=== PATIENT | female | born 1995 | race Caucasian/White ===

== ENCOUNTER 2017-06-22 16:19 | Emergency (ER) | payer BC ==
[~2017-06-22] VITALS: Ht 165.1 cm; Wt 100.2 kg
[~2017-06-22 16:19] MED LIST: MELO7.5T5 PO
[2017-06-22 16:42] VITALS: TEMP 37; Ht 165.1 cm; Wt 100.2 kg
[2017-06-22] MEDS ORDERED: KETOROLAC TROMETHAMINE 30 MG/ML VIAL IV STA (17:26)
[2017-06-22] MEDS ORDERED: AMPICILLIN/SULBACTAM SOD INJ 3,000 MG in SODIUM CHLORIDE 0.9% 100ML 100 ML IV STA (17:26)
[2017-06-22] MEDS ORDERED: DEXAMETHASONE INJ 8 MG in SYRINGE 0 ML IV ONE (17:30)
[2017-06-22] MEDS ORDERED: SODIUM CHLORIDE 0.9% 1000ML 1,000 ML IV ONE (17:30)
[2017-06-22] MEDS ORDERED: DEXAMETHASONE **PF** INJ 10 MG/ML VIAL ONE (17:33)
[2017-06-22 17:56] LABS: BASO % 0.1 %; BASO ABS # 0.01 K/uL (0-0.2); EOS % 0.4 %; EOS ABS # 0.04 K/uL (0-0.5); HEMATOCRIT 40.2 % (37-47); HEMOGLOBIN 13.9 g/dL (12.0-16.0); IG# 0.03 K/uL (0.00-0.02); LYMPH % 12.8 %; LYMPH ABS # 1.34 K/uL (1.2-3.4); MEAN CELL VOLUME 89.5 fL (80-100); MEAN CORPUSCULAR HGB CONC 34.6 g/dl (32-36); MEAN PLATELET VOLUME 9.9 fL (7.4-10.4); MONO % 9.2 %; MONO ABS # 0.96 K/uL (0.11-0.59); NEUT % 77.2 %; NEUT ABS # 8.09 K/uL (1.4-6.5); PLATELET COUNT 250 K/uL (130-400); RED CELL DISTRIBUTION WIDTH CV 12.9 % (11.5-14.5); RED CELL DISTRIBUTION WIDTH SD 41.8 fL (36.4-46.3); WHITE BLOOD COUNT 10.47 K/uL (4.8-10.8)
[2017-06-22 18:23] LABS: CALCIUM 9.2 mg/dl (8.5-10.1); CREATININE 0.85 mg/dl (0.60-1.20)
[2017-06-22] MEDS ORDERED: AMOX875T3 PO (18:37)
[2017-06-22] MEDS ORDERED: PRED20TA2 PO (18:37)
[2017-06-22 19:18] VITALS: BP 131/69; PULSE 74; O2SAT 96
--- NOTE | 2017-06-24 11:01 | EMERGENCY ROOM VISIT NOTE ---
ED Visit Note First contact with patient: 16:47 Chief Complaint: Throat pain and difficulty swallowing. History of Present Illness: Ms. Elder is a 22-year-old white female who ambulates into the ED complaining of throat pain and difficulty swallowing. Patient reports her discomfort started about 3 days ago. She reports initially it was mild and has gradually increased in intensity. She describes her pain as a sharp and pressure discomfort in the posterior throat area. Her pain is nonradiating. He currently rates her discomfort 3/10. Her pain has been constant but has waxed and waned in intensity; she reports it's much worse in the morning when she is waking up. Her pain worsens with swallowing and sometimes with talking. She has not identified any alleviating factors related to the pain. She does report she has been taken Tylenol without relief of her discomfort. She denies fevers but does report she has chills, sweats, skin eruptions, skin color changes, headaches, dizziness, lightheadedness, ear pain, ear drainage, voice changes, inability to swallow, drooling, neck pain/stiffness, cough, wheezing, shortness of breath, abdominal pain, decreased appetite. Review of Systems: As noted above in history of present illness. 8 body systems were reviewed and found to be negative as noted above. Past Medical History: Patient denies. Current Medications: Patient denies. Allergies to Medications: Penicillin. Social History: Patient is currently employed; she feels safe in her home environment; she denies tobacco and alcohol use. Physical Examination: Vital Signs: Date Time Temp Pulse Resp B/P (MAP) Pulse Ox O2 Delivery O2 Flow Rate FiO2 06/22/17 19:18 74 18 131/69 96 06/22/17 16:42 98 Room Air 06/22/17 16:42 37.0 89 18 123/83 98 Room Air GENERAL: 22-year-old female in mild to moderate distress due to pain, nontoxic- appearing, afebrile and hemodynamically stable. NEUROLOGICAL: Awake, alert and oriented to person, place and time. Answering questions appropriately and following commands. Normal gait. Good hand eye coordination. No focal motor or sensory deficits. SKIN: Warm, dry and pink. No soft tissue eruptions noted. HEENT: Atraumatic and normocephalic. No tenderness or erythema over the frontal or maxillary sinuses. External ears are nontender. Auditory canal is pink and patent. Tympanic membranes are not erythematous or edematous. PERRLA. Sclera white and conjunctiva pink without drainage. No drainage from naris. Oral cavity moist and pink. Uvula is midline and no abscesses are seen. Airway patent. Speech is normal and clear. Posterior pharyngeal area is moderately erythematous and moderately edematous. There is tonsillar hypertrophy which is slightly more pronounced on the right and the left. No uvula deviation. There is purulent drainage on the tonsils. Speech normal and clear. Mild right-sided cervical lymphadenopathy in the anterior chain. Trachea midline. No jugular venous distention. No laryngeal tenderness. No auditory or auscultatory stridor. BACK: No tenderness over the bony spine. Full range of motion of the cervical spine. THORAX: Lungs sounds are clear to auscultation and equal bilaterally with symmetrical chest wall. No wheezing, rales or rhonchi. ABDOMEN: Flat, soft and nontender. Positive bowel sounds in all quadrants. No guarding, rigidity or organomegaly. EXTREMITIES: Moves all extremities well on command and with purpose. ED Course: Patient is assessed as noted above. Patient's medication list was reviewed. Rapid Strep Screen: Negative. Cultures pending. Laboratory Testing: Test 06/22/17 17:45 06/22/17 18:23 Range/Units White Blood Count 10.47 4.8-10.8 K/uL Red Blood Count 4.49 4.2-5.4 M/uL Hemoglobin 13.9 12.0-16.0 g/dL Hematocrit 40.2 37-47 % Mean Corpuscular Volume 89.5 80-100 fL Mean Corpuscular Hemoglobin 31.0 25-34 pg Mean Corpuscular Hemoglobin Concent 34.6 32-36 g/dl Platelet Count 250 130-400 K/uL Mean Platelet Volume 9.9 7.4-10.4 fL Neutrophils (%) (Auto) 77.2 % Lymphocytes (%) (Auto) 12.8 % Monocytes (%) (Auto) 9.2 % Eosinophils (%) (Auto) 0.4 % Basophils (%) (Auto) 0.1 % Neutrophils # (Auto) 8.09 1.4-6.5 K/uL Lymphocytes # (Auto) 1.34 1.2-3.4 K/uL Monocytes # (Auto) 0.96 0.11-0.59 K/uL Eosinophils # (Auto) 0.04 0-0.5 K/uL Basophils # (Auto) 0.01 0-0.2 K/uL RDW Standard Deviation 41.8 36.4-46.3 fL RDW Coefficient of Variation 12.9 11.5-14.5 % Immature Granulocyte % (Auto) 0.3 % Immature Granulocyte # (Auto) 0.03 0.00-0.02 K/uL Sodium Level 136 136-145 mmol/L Potassium Level 3.6 3.5-5.1 mmol/L Chloride Level 104 98-107 mmol/L Carbon Dioxide Level 27 21-32 mmol/L Anion Gap 5.0 3-11 mmol/L Blood Urea Nitrogen 11 7-18 mg/dl Creatinine 0.85 0.60-1.20 mg/dl Est Creatinine Clear Calc Drug Dose 120.7 ml/min Estimated GFR () 111.9 Estimated GFR (Non- 96.6 BUN/Creatinine Ratio 12.6 10-20 Random Glucose 88 70-99 mg/dl Calcium Level 9.2 8.5-10.1 mg/dl Monoscreen NEG NEG An IV lock was initiated and patient hydrated with normal saline and she received 8 mg of Decadron IV, 30 mg of Toradol IV and 3 g of Unasyn IV for antibiotic coverage. Patient was reassessed multiple times during her stay in the emergency department. Patient was educated about today's findings and instructed on her treatment plan ; she verbalized understanding and agreement with this plan. Clinical Impression: Acute tonsillitis. Decision-Making: Pharyngitis for multiple causes including mononucleosis, strep , viral, tonsillar abscess, deep neck tissue abscess, epiglottitis and other causes. Disposition: Patient discharged home in stable condition; prior to departure she was reassessed and subjectively reported she was feeling better and rated her discomfort 1/10. Plan: Patient was prescribed amoxicillin 875 mg 3 times a day for 10 days. Patient was prescribed 60 mg of prednisone once a day for the next 5 days. Patient was encouraged to alternate ibuprofen and acetaminophen as needed for pain or fevers. Patient was encouraged to use a liquid/mechanical soft diet until resolution of throat discomfort. Patient was encouraged to follow-up with [facility] for recheck in 2-3 days if no better. Patient was encouraged return ED for worsening/uncontrolled pain, inability to swallow, drooling, uncontrolled fevers or any new/concerning symptoms.
== END 2017-06-22 19:20 | disposition home or self-care (01) ==
LOC: C.EDB 16:20 → C.EDD 19:20
DX: J03.90 Acute tonsillitis, unspecified (principal)

== ENCOUNTER → 2017-10-10 | Day surgery (SDC) | payer BC ==
[2017-10-04 09:46] VITALS: Ht 165.1 cm; Wt 100.0 kg
[~2017-10-10] VITALS: Ht 165.1 cm; Wt 100.0 kg
[~2017-10-10] MED LIST changes: +ATROPINE SULFATE 0.1 MG/ML 5ML SYR IV PRN; +BUPIVACAINE 0.5 % 5 MG/1 ML MPF 30ML VIAL ONE; +CEFAZOLIN 2000MG IV PUSH 15 ML IV SCH; +DEXAMETHASONE SOD INJ 4 MG/ML VIAL ONE; +DPPRI400 IM; +EpHEDrine SULFATE INJ 50 MG/ML AMP IV PRN; +FENTANYL CITRATE INJ 50 MCG/1 ML 2 ML VIAL IV PRN; +FENTANYL CITRATE INJ 50 MCG/1 ML 2 ML VIAL ONE; +FLUMAZENIL 0.1 MG/1 ML 10 ML VIAL IV PRN; +HYDROmorphone INJ 2 MG/ML SYR/VIAL IV PRN; +LABETALOL HCL IV 5 MG/ML 20ML IV PRN; +LACTATED RINGER'S 1000ML 1,000 ML IV SCH; +LIDOCAINE HCL 1% 20 ML VIAL ONE; +LIDOCAINE HCL 2% 2 ML VIAL (20MG/ML) ONE; -MELO7.5T5 PO; +MEPERIDINE HCL 25 MG/ML CARP IV PRN; +MIDAZOLAM HCL 1 MG/ML 2ML VIAL ONE; +NALOXONE HCL 0.4 MG/1 ML VIAL/CARP IV PRN; +ONDANSETRON INJ 2 MG/ML 2 ML VIAL IV PRN; +ONDANSETRON INJ 2 MG/ML 2 ML VIAL ONE; +OXYC-57 PO; +OXYCODONE/ACETAMINOPHEN 5-325 TAB PO PRN; +PHENYLEPHRINE 100MCG/ML 5ML SYR IV PRN; +PROPOFOL IV EMULSION 10 MG/ML 20 ML VIAL ONE; +SCOPOLAMINE 1.5 MG TDSY TD ONE; +SODIUM CHLORIDE 0.9% 1000ML 1,000 ML IV SCH; +VNTHFA/IN INH
--- NOTE | 2017-10-10 10:10 | History & Physical Bridge - [place] ---
H&P Re-Evaluation Bridge Note: I have examined the patient, reviewed the History & Physical and in the interval since the performance of the History & Physical I have noted the following changes of clinical significance: No changes noted
--- NOTE | 2017-10-10 10:20 | Discharge Instructions-SurgCtr ---
Discharge Instructions Date of Service October 10, 2017. Visit Reason for Visit: S Discharge Discharge Diagnosis / Problem: subcutaneous mass Discharge Goals Goal(s): Decrease discomfort, Improve function, Improve disease control Activity Recommendations Activity Limitations: as noted below Lifting Limitations: no more than 25 pounds (for 2 weeks) Exercise/Sports Limitations: until after follow-up appointment May Resume Sexual Activity: when tolerated Shower/Bathe: keep incision dry (may shower over incision in 2 days- 10/12) Driving or Machine Use: resume 1 day after discharge Anesthesia . Post Anesthesia Instructions: If you have had General Anesthesia or IV Sedation: * Do not drive today. * Resume driving when surgeon permits. * Do not make important decisions or sign legal documents today. * Call surgeon for: 1. Temperature elevations greater than 101 degrees F. 2. Uncontrollable pain. 3. Excessive bleeding. 4. Persistent nausea and vomiting. 5. Medication intolerance (nausea, vomiting or rash). * For nausea and vomiting use only clear liquids such as: tea, soda, bouillon until nausea subsides, then gradually increase diet as tolerated. * If you have any concerns or questions, call your surgeon's office. If physician is unavailable and it is an emergency, call 911 or go to the nearest emergency room. . Instructions / Follow-Up Instructions / Follow-Up SPECIAL CARE INSTRUCTIONS: * Cover incisions and change daily for comfort/drainage. * Leave steri strips in place * May use ibuprofen for pain as tolerated. * Expect some swelling and bruising. Call your doctor if: * Temperature above 101 degrees * Pain not relieved by pain medicine ordered * There is increased drainage or redness from any incision * You have any unanswered questions or concerns [phone]. FOLLOW UP VISIT: If not already scheduled, please call the office for a follow-up visit. for next week- remove suture knots at ends of incision OFFICE PHONE NUMBER: Dr. Giron Office Diet Recommendations Home Diet: resume previous diet Pending Studies Studies pending at discharge: no Medical Emergencies . Who to Call and When: Medical Emergencies: If at any time you feel your situation is an emergency, please call 911 immediately. . Non-Emergent Contact Non-Emergency issues call your: Primary Care Provider, Surgeon . . "Provider Documentation" section prepared by Jeremy Giron. .
--- NOTE | 2017-10-10 10:57 | [facility] Operative Report ---
Operative Report Operative Date October 10, 2017. Pre-Operative Diagnosis Left Upper Quadrant Lipoma Post-Operative Diagnosis same Procedure(s) Performed Left Upper Quadrant Lipoma Excision Surgeon Dr. Joshua Giron Pulverizer Tender Surgeon(s) 0 Estimated Blood Loss 5cc Specimens A. Left Upper Quadrant Lipoma Drains None Anesthesia Type General Disposition Recovery Room / PACU I attest to the content of the Intraoperative Record and any orders documented therein. Any exceptions are noted below.
--- NOTE | 2017-10-10 11:20 | OPERATIVE REPORT ---
DATE OF OPERATION: 10/10/2017 NAME OF OPERATION: Excision of upper abdominal lipoma. PREOPERATIVE DIAGNOSIS: Upper abdominal lipoma. POSTOPERATIVE DIAGNOSIS: Upper abdominal lipoma. STAFF SURGEON: Jeremy Giron M.D. ANESTHESIA: General LMA. DESCRIPTION OF PROCEDURE: The patient was brought in the operating room and placed on the operating table in supine position. Her upper abdomen was prepped and draped in usual fashion. After appropriate anesthetic, a transverse incision was made using 0.5% plain Marcaine to anesthetize the skin and subcutaneous tissue. Incision made carrying dissection down into the deep tissue. It was somewhat edematous. I did not see a specific lipoma, but the surrounding tissue was excised widely, sent for routine pathology. Deep tissue was reapproximated using 2-0 plain suture and then the skin reapproximated using subcuticular 5-0 Monocryl with Steri-Strips. Dressing applied and the patient transferred to recovery room in stable condition. I attest to the content of the Intraoperative Record and any orders documented therein. Any exception s are noted below.
--- NOTE | 2017-10-10 11:40 | Anesthesia Progress Nt - [facility] ---
Anesthesia Post Op Note Date & Time October 10, 2017 at 11:40 Vital Signs Pain Intensity: 0 Vital Signs Past 12 Hours Date Time Temp Pulse Resp B/P (MAP) Pulse Ox O2 Delivery O2 Flow Rate FiO2 10/10/17 11:39 71 17 99 10/10/17 11:39 69 17 10/10/17 11:36 131/74 10/10/17 11:35 36.4 61 16 131/74 98 Room Air 10/10/17 11:34 60 22 99 10/10/17 11:34 60 22 10/10/17 11:33 70 24 10/10/17 11:33 70 24 100 10/10/17 11:31 138/78 10/10/17 11:28 66 34 100 10/10/17 11:28 67 34 10/10/17 11:27 67 29 100 10/10/17 11:27 67 29 10/10/17 11:26 112/76 10/10/17 11:22 62 16 99 10/10/17 11:22 61 16 10/10/17 11:21 109/60 10/10/17 11:17 63 14 99 10/10/17 11:17 63 14 10/10/17 11:16 112/63 10/10/17 11:15 60 17 10/10/17 11:15 61 17 99 10/10/17 11:11 112/64 10/10/17 11:10 60 16 10/10/17 11:10 60 16 99 10/10/17 11:06 109/64 10/10/17 11:05 36.4 62 20 109/64 99 Diffusion Mask 6 10/10/17 09:09 36.8 81 16 114/77 (89) 97 Room Air Notes Mental Status: alert / awake / arousable, participated in evaluation Pt Amnestic to Procedure: Yes Nausea / Vomiting: adequately controlled Pain: adequately controlled Airway Patency, RR, SpO2: stable & adequate BP & HR: stable & adequate Hydration State: stable & adequate Anesthetic Complications: no major complications apparent
[2017-10-10 11:45] VITALS: TEMP 36.4
[2017-10-10 12:16] VITALS: BP 115/74; PULSE 68; O2SAT 96
--- NOTE | 2017-10-16 06:59 | EDITING REQUIRED CODING QUERY ---
CODING CLARIFICATION Please clarify below the size of the lipoma excised in centimeters. LIPOMA SIZE: 4.5x3.5x2.5 cm Thank you for your assistance, Elizabeth Parnell - Animal Breeder
== END | disposition home or self-care (01) ==
LOC: X.SURG 08:44
PROVIDERS: ATTEND Surgery
DX: D17.79 Benign lipomatous neoplasm of other sites (principal); J45.909 Unspecified asthma, uncomplicated; E66.9 Obesity, unspecified; Z68.36 Body mass index [BMI] 36.0-36.9, adult; Z80.3 Family history of malignant neoplasm of breast; Z82.49 Family history of ischemic heart disease and other diseases of the circulatory system; Z82.3 Family history of stroke; Z83.3 Family history of diabetes mellitus